=== PATIENT | male | born 1970 | race Two or more races ===

== ENCOUNTER 2018-09-11 07:14 | Emergency (ER) | payer MEDICAID ==
[~2018-09-11] VITALS: Ht 180.3 cm; Wt 78.5 kg
[2018-09-11 07:45] VITALS: BP 144/91
[2018-09-11] MEDS ORDERED: THIAMINE INJ 100 MG, MULTIPLE VITAMIN 10 ML, FOLIC ACID 1 MG, MAGNESIUM SULF SDV 50% 8 ... IV ONE ×5 (08:01)
[2018-09-11 08:13] LABS: Eosinophils # (auto) 0 uL; Mean Corpuscular Volume 103.1 fL (80.0-100.0); Neutrophils # (auto) 3.6 uL; White Blood Cell 5.8 10^3/uL (4.4-10.8)
[2018-09-11 08:16] LABS: Basophils # (auto) 0 uL; Basophils % (auto) 0.8 % (0.0-2.0); Hematocrit 36.7 % (41.0-53.0); Hemoglobin 12.4 g/dL (13.5-17.5); Lymphocytes # (auto) 1.5 uL; Lymphocytes % (auto) 26.2 % (10.0-50.0); Mean Corpuscular Hemoglobin 34.9 pg (28.0-32.0); Mean Corpuscular Hgb Conc. 33.9 g/dL (32.0-36.0); Monocytes # (auto) 0.7 uL; Monocytes % (auto) 11.4 % (0.0-12.0); Neutrophils % (auto) 61.6 % (37.0-80.0); Platelet Count (auto) 235 10^3/uL (140-450); Red Blood Cells 3.56 10^6/uL (4.5-5.90); Red Cell Distribution Width 12.8 % (11.8-14.3)
[2018-09-11 08:30] LABS: Albumin 3.8 g/dL (3.4-5.0); BUN/Creatinine Ratio 15.7; Calcium 8.1 mg/dL (8.5-10.1); Magnesium 2.2 mg/dL (1.6-2.6); Potassium 3.5 mmol/L (3.5-5.1)
[2018-09-11 08:35] LABS: Bilirubin, Total 0.5 mg/dL (0.2-1.0); Total Protein 8.1 g/dL (6.4-8.2)
== END 2018-09-11 09:40 | disposition home or self-care (01) ==
LOC: ER 07:21
DX: F10.20 Alcohol dependence, uncomplicated (principal)
CPT/HCPCS: 36415; 80053; 80320; 83735; 85025; 94761; 96365; 99284; J3411; J3475

== ENCOUNTER 2019-08-07 22:35 | Emergency (ER) | payer MEDICAID ==
[~2019-08-07] VITALS: Ht 180.3 cm; Wt 72.2 kg
[2019-08-07 23:00] LABS: Basophils # (auto) 0 uL; Basophils % (auto) 0.9 % (0.0-2.0); Eosinophils # (auto) 0 uL; Eosinophils % (auto) 0.1 % (0.0-7.0); Hematocrit 34.1 % (41.0-53.0); Hemoglobin 11.4 g/dL (13.5-17.5); Lymphocytes # (auto) 0.7 uL; Lymphocytes % (auto) 15.1 % (10.0-50.0); Mean Corpuscular Hemoglobin 32.2 pg (28.0-32.0); Mean Corpuscular Hgb Conc. 33.3 g/dL (32.0-36.0); Mean Corpuscular Volume 96.7 fL (80.0-100.0); Monocytes # (auto) 0.8 uL; Monocytes % (auto) 17.9 % (0.0-12.0); Neutrophils # (auto) 2.9 uL; Platelet Count (auto) 122 10^3/uL (140-450); Red Blood Cells 3.53 10^6/uL (4.5-5.90); White Blood Cell 4.4 10^3/uL (4.4-10.8)
[2019-08-07 23:20] LABS: BUN/Creatinine Ratio 6.1; Magnesium 1.6 mg/dL (1.6-2.6); Potassium 3.4 mmol/L (3.5-5.1)
[2019-08-07 23:22] LABS: Valproic Acid (Depakene) < 3.0 ug/mL (50-100)
[2019-08-07 23:23] LABS: Bilirubin, Total 1.3 mg/dL (0.2-1.0); Total Protein 8.2 g/dL (6.4-8.2)
[2019-08-07 23:24] LABS: Phenytoin (Dilantin) < 0.5 ug/mL (10-20)
[2019-08-07] MEDS ORDERED: LORazepam 2MG/ML-1ML VIAL ONE (23:52)
[2019-08-08] MEDS ORDERED: LORazepam 2MG/ML-1ML VIAL IV ONE (01:00)
[2019-08-08 05:00] VITALS: BP 133/86
[2019-08-08] MEDS ORDERED: LEVETIRACETAM INJ 1,000 MG in D5W 5% 100 ML IV ONE (05:45)
[2019-08-08] MEDS ORDERED: LEVETIRACETAM 500 MG/5ML INJ IV ONE (06:05)
[2019-08-08 06:09] LABS: Urine Bacteria FEW /hpf (None Seen); Urine Blood Negative /uL (Negative); Urine Hyaline Cast FEW /lpf (0 - 2); Urine Mucus FEW (None Seen); Urine Specific Gravity 1.015 (1.001-1.035); Urine WBC 5 /hpf (0 - 3)
[2019-08-08 06:20] LABS: Alcohol, Urine < 3.0 mg/dL (0-5); Amphetamine Screen, Urine POSITIVE (NEGATIVE); Barbiturate Scree,Urine NEGATIVE (NEGATIVE); Benzodiazephine Screen, Urine NEGATIVE (NEGATIVE); Cannabinoid Screen, Urine POSITIVE (NEGATIVE); Cocaine Screen, Urine NEGATIVE (NEGATIVE); Opiate Scree,Urine NEGATIVE (NEGATIVE); Phencyclidine Screen, Urine NEGATIVE (NEGATIVE)
== END 2019-08-08 07:12 | disposition home or self-care (01) ==
LOC: EDBD 22:35 → ER 22:35
DX: K70.30 Alcoholic cirrhosis of liver without ascites (principal); R56.9 Unspecified convulsions; F10.20 Alcohol dependence, uncomplicated; Y90.0 Blood alcohol level of less than 20 mg/100 ml
CPT/HCPCS: 36415; 70450; 80053; 80164; 80185; 80307; 80320; 81001; 83735; 85025; 96374; 96375; 99284; J2060; J7060

== ENCOUNTER 2019-08-23 10:59 | Emergency (ER) | payer MEDICAID ==
[~2019-08-23] VITALS: Ht 180.3 cm; Wt 75.7 kg
[2019-08-23 11:10] VITALS: BP 147/81
[2019-08-23 11:33] LABS: Basophils # (auto) 0.1 uL; Basophils % (auto) 1.2 % (0.0-2.0); Eosinophils # (auto) 0 uL; Eosinophils % (auto) 0.2 % (0.0-7.0); Hematocrit 35.3 % (41.0-53.0); Hemoglobin 12.2 g/dL (13.5-17.5); Lymphocytes # (auto) 1.3 uL; Lymphocytes % (auto) 14.6 % (10.0-50.0); Mean Corpuscular Hemoglobin 33.1 pg (28.0-32.0); Mean Corpuscular Hgb Conc. 34.5 g/dL (32.0-36.0); Mean Corpuscular Volume 96.1 fL (80.0-100.0); Monocytes # (auto) 0.6 uL; Monocytes % (auto) 7.4 % (0.0-12.0); Neutrophils # (auto) 6.6 uL; Neutrophils % (auto) 76.6 % (37.0-80.0); Platelet Count (auto) 336 10^3/uL (140-450); Red Blood Cells 3.67 10^6/uL (4.5-5.90); Red Cell Distribution Width 16.1 % (11.8-14.3); White Blood Cell 8.6 10^3/uL (4.4-10.8)
[2019-08-23 11:49] LABS: INR 0.99 (0.9-1.15); Partial Thromboplastin Time 30.2 sec (23.64-32.05)
[2019-08-23 11:57] LABS: Calcium 8.9 mg/dL (8.5-10.1); Potassium 3.6 mmol/L (3.5-5.1)
[2019-08-23 11:59] LABS: BUN/Creatinine Ratio 8.5; Total Protein 8.7 g/dL (6.4-8.2)
[2019-08-24 05:00] LABS: Alcohol, Urine < 3.0 mg/dL (0-5); Amphetamine Screen, Urine POSITIVE (NEGATIVE); Barbiturate Scree,Urine NEGATIVE (NEGATIVE); Benzodiazephine Screen, Urine NEGATIVE (NEGATIVE); Cannabinoid Screen, Urine POSITIVE (NEGATIVE); Cocaine Screen, Urine NEGATIVE (NEGATIVE); Phencyclidine Screen, Urine NEGATIVE (NEGATIVE)
[2019-08-24 05:08] LABS: Opiate Scree,Urine NEGATIVE (NEGATIVE)
== END 2019-08-23 15:14 | disposition left against medical advice (07) ==
LOC: ER 10:59
DX: S09.90XA Unspecified injury of head, initial encounter (principal); K70.10 Alcoholic hepatitis without ascites; R42 Dizziness and giddiness; W18.09XA Striking against other object with subsequent fall, initial encounter; Y93.89 Activity, other specified; Y92.89 Other specified places as the place of occurrence of the external cause; Y99.8 Other external cause status
CPT/HCPCS: 36415; 70450; 80053; 80307; 85025; 85610; 85730

== ENCOUNTER 2019-08-23 21:22 | Emergency (ER) | payer MEDICAID ==
[2019-08-24 06:00] VITALS: BP 124/75
== END 2019-08-24 08:43 | disposition home or self-care (01) ==
LOC: ER 21:22 → EDBD 21:22 → ER 08-24 08:43
DX: S09.8XXA Other specified injuries of head, initial encounter (principal); F41.9 Anxiety disorder, unspecified; G40.909 Epilepsy, unspecified, not intractable, without status epilepticus; Z87.820 Personal history of traumatic brain injury; F10.20 Alcohol dependence, uncomplicated; Y90.9 Presence of alcohol in blood, level not specified; W18.09XA Striking against other object with subsequent fall, initial encounter; Y93.89 Activity, other specified; Y92.89 Other specified places as the place of occurrence of the external cause; Y99.8 Other external cause status
CPT/HCPCS: 70450